=== PATIENT | male | born 1975 | race Caucasian/White ===

== ENCOUNTER 2020-04-22 06:41 | Outpatient (REF) | payer BC, SELFPAY ==
[2020-04-22 11:18] LABS: MANUAL DIFF FLAG NO
[2020-04-22 11:26] LABS: Basophils Percent Auto 0.4 % (0-2); Eosinophils Absolute Auto 0.2 X10*3/uL (0.0-0.4); Eosinophils Percent Auto 2.5 % (0-4); Hematocrit 48.5 % (42-52); Imm Gran Abs Auto 0.02 X10*3/uL (0.00-0.03); Imm Gran Pct Auto 0.3 % (0.0-0.4); Lymphocytes Absolute Auto 2.3 X10*3/uL (1.2-4.9); Lymphocytes Percent Auto 32.8 % (20-40); Mean Corpuscular Hemoglobin 30.1 pg (27.0-33.0); Mean Corpuscular Volume 91.2 fL (80-98); Mean Platelet Volume 10.7 fL (9.4-12.4); Monocytes Absolute Auto 0.9 X10*3/uL (0.1-1.2); Monocytes Percent Auto 12.5 % (2-11); Neutrophils Absolute Auto 3.6 X10*3/uL (2.0-8.3); Neutrophils Percent Auto 51.5 % (45-73); Platelet Count 205 X10*3/uL (160-400); Red Blood Count 5.32 X10*6/uL (4.60-5.80); Red Cell Distribution Width 12.7 % (11.0-16.0); White Blood Count 6.9 X10*3/uL (4.8-10.8)
[2020-04-22 11:52] LABS: Alanine Aminotransferase 47 U/L (0-40); Albumin Level 4.4 g/dL (3.5-5.0); Alkaline Phosphatase 44 U/L (39-117); Anion Gap 13 (12-20); Aspartate Amino Transferase 30 U/L (5-37); Blood Urea Nitrogen 14 mg/dL (9-16); Calcium 9.3 mg/dL (8.4-10.2); Carbon Dioxide 28 mmol/L (22-29); Chloride 104 mmol/L (96-108); Cholesterol 239 mg/dL; Estimated Glomerular Filt Rate > 60; Glucose Fasting 91 mg/dL (60-99); HDL Cholesterol 51 mg/dL; LDL Cholesterol Calculated 166 mg/dl; Potassium 4.4 mmol/l (3.3-5.1); Sodium 141 mmol/L (135-145); Total Protein 7.1 g/dL (6.5-8.0); Triglycerides 113 mg/dL
[2020-04-22 12:14] LABS: Thyroid Stimulating Hormone 2.11 mIU/mL (0.32-4.0)
== END 2020-04-22 06:42 | disposition home or self-care (01) ==
LOC: HO.HMGCLDS 06:41
PROVIDERS: PCP Internal Medicine; Visit Provider Internal Medicine
DX: Z00.00 Encounter for general adult medical examination without abnormal findings (principal)
CPT/HCPCS: 36415; 80053; 80061; 84443; 85025

== ENCOUNTER 2020-10-08 06:42 | Outpatient (REF) | payer BC, SELFPAY ==
[2020-10-08 12:06] LABS: Alanine Aminotransferase 40 U/L (0-40); Albumin Level 4.2 g/dL (3.5-5.0); Alkaline Phosphatase 43 U/L (39-117); Anion Gap 10 (12-20); Aspartate Amino Transferase 23 U/L (5-37); Bilirubin Total 0.8 mg/dL (0.0-1.0); Blood Urea Nitrogen 20 mg/dL (9-16); Calcium 8.4 mg/dL (8.4-10.2); Carbon Dioxide 29 mmol/L (22-29); Chloride 107 mmol/L (96-108); Cholesterol 170 mg/dL; Estimated Glomerular Filt Rate > 60; Glucose Fasting 88 mg/dL (60-99); HDL Cholesterol 50 mg/dL; LDL Cholesterol Calculated 108 mg/dl; Potassium 4.1 mmol/L (3.3-5.1); Sodium 142 mmol/L (135-145); Total Protein 6.8 g/dL (6.5-8.0); Triglycerides 60 mg/dL
== END 2020-10-08 06:43 | disposition home or self-care (01) ==
LOC: HO.HMGCLDS 06:42
PROVIDERS: Visit Provider Internal Medicine
DX: E78.00 Pure hypercholesterolemia, unspecified (principal)
CPT/HCPCS: 36415; 80053; 80061

== ENCOUNTER → 2021-02-15 14:14 | Outpatient (BNVA) | payer BC, SELFPAY | PROVIDERS: PCP Internal Medicine; Visit Provider Surgery ==

== ENCOUNTER → 2021-02-25 10:08 | Outpatient (BNVA) | payer BC, SELFPAY | PROVIDERS: PCP Internal Medicine; Visit Provider Surgery ==

== ENCOUNTER 2022-12-19 06:19 | Outpatient (REF) | payer BC, SELFPAY ==
[2022-12-19 11:10] LABS: MANUAL DIFF FLAG NO
[2022-12-19 11:21] LABS: Basophils Percent Auto 0.4 % (0-2); Eosinophils Absolute Auto 0.2 X10*3/uL (0.0-0.4); Eosinophils Percent Auto 2.5 % (0-4); Hemoglobin 16.2 g/dl (14.0-18.0); Imm Gran Abs Auto 0.01 X10*3/uL (0.00-0.03); Imm Gran Pct Auto 0.1 % (0.0-0.4); Lymphocytes Absolute Auto 2.2 X10*3/uL (1.2-4.9); Lymphocytes Percent Auto 32.9 % (20-40); Mean Corpuscular HGB Conc 33.8 g/dl (31.0-36.0); Mean Corpuscular Hemoglobin 30.3 pg (27.0-33.0); Mean Corpuscular Volume 89.9 fL (80.0-98.0); Mean Platelet Volume 10.6 fL (9.4-12.4); Monocytes Absolute Auto 0.8 X10*3/uL (0.1-1.2); Monocytes Percent Auto 12.1 % (2-11); Neutrophils Absolute Auto 3.5 x10*3/uL (2.0-8.3); Platelet Count 185 X10*3/uL (160-400); Red Blood Count 5.34 X10*6/uL (4.60-5.80); Red Cell Distribution Width 12.6 % (11.0-16.0); White Blood Count 6.7 X10*3/uL (4.8-10.8)
[2022-12-19 11:54] LABS: Alanine Aminotransferase 40 U/L (0-40); Albumin Level 4.1 g/dL (3.5-5.0); Alkaline Phosphatase 47 U/L (39-117); Anion Gap 12 (12-20); Aspartate Amino Transferase 25 U/L (5-37); Bilirubin Total 0.5 mg/dL (0.0-1.0); Blood Urea Nitrogen 16 mg/dL (9-16); Calcium 9.1 mg/dL (8.4-10.2); Carbon Dioxide 24 mmol/L (22-29); Chloride 110 mmol/L (96-108); Cholesterol 214 mg/dL; Estimated Glomerular Filt Rate > 60; Glucose Fasting 101 mg/dL (60-99); HDL Cholesterol 46 mg/dL; LDL Cholesterol Calculated 141 mg/dl; Sodium 142 mmol/L (135-145); Triglycerides 138 mg/dL
[2022-12-19 12:09] LABS: PSA,Total (Free>4and<10) 0.21 ng/mL (0.00-4.00)
[2022-12-19 12:16] LABS: Thyroid Stimulating Hormone 3.21 uIU/mL (0.32-4.0); Vitamin D 25-OH Total 45.3 ng/mL (>30)
== END 2022-12-19 06:20 | disposition home or self-care (01) ==
LOC: HO.HMGCLDS 06:19
PROVIDERS: PCP Internal Medicine; Visit Provider Internal Medicine
DX: Z00.00 Encounter for general adult medical examination without abnormal findings (principal); Z12.5 Encounter for screening for malignant neoplasm of prostate; E78.00 Pure hypercholesterolemia, unspecified; E66.3 Overweight
CPT/HCPCS: 36415; 80053; 80061; 82306; 84153; 84443; 85025

== ENCOUNTER 2023-12-27 14:48 | Outpatient (AMB) | payer BC, SELFPAY ==
--- NOTE | 2023-12-27 15:01 | A.OFFPC_ITS ---
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 FHx: Mom: DM, Skin CA. Liver failure. Dad: Crohns. GM: DM. Nephew: DM. 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 REP (central serous retinopathy) Surgical History History of hand surgery Family History (Updated 12/27/23 @ 15:19 by Jacqueline Carvajal CMA) Mother Skin cancer Liver failure Type 2 diabetes mellitus Father Colitis Acute Crohn's disease Social History (Updated 12/27/23 @ 15:23 by Jacqueline Carvajal CMA) Household Members: Family Both parents involved: No Caregiver staying overnight: No Housing: House Are you a primary child care education coordinator to a significant other at home: No Do you presently have visiting nurse or other home services: No 75 years or older and lives alone: No Alcohol intake: never Patient Tobacco Use Status: Never used Tobacco e-Cigarette/Vaping Use: Never Used Use of substances other than those prescribed or required for medical reasons: No Have you been hit, kicked, punched, or otherwise hurt by someone within the past year? 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 1. Little interest or pleasure in doing things: not at all 2. Feeling down, depressed, or hopeless: not at all 3. Trouble falling or staying asleep, or sleeping too much: not at all 4. Feeling tired or having little energy: not at all 5. Poor appetite or overeating: not at all 6. Feeling bad about yourself - or that you are a failure or have let yourself or your family down: not at all 7. Trouble concentrating on things, such as reading the newspaper or watching television: not at all 8. Moving or speaking so slowly that other people could have noticed. Or the opposite - being so fidgety or restless that you have been moving around a lot more than usual: not at all 9. Thoughts that you would be better off or of hurting yourself in some way: not at all Total score: 0 Depression Screening Interpretation: Negative Depression Screening Done: Yes 81346 - PHQ-9 Billing: Yes Source: Developed by Drs. Bahman Gómez, Zonia Ramirez, Emerson Cabral and colleagues, with an educational jossue from [employer]. AUDIT C Alcohol Use Questionnaire (AUDIT-C) 1. How often do you have a drink containing alcohol?: Monthly or less 2. How many drinks containing alcohol do you have on a typical day when you are drinking?: 3 or 4 3. How often do you have six or more drinks on one occasion?: Never Total Score: 2 MING-7 AMB Questionnaire MING-7 Date MING - 7 assessed: 12/27/23 Feeling nervous, anxious, or on edge: 0 = Not at all Not being able to stop or control worryin = Not at all Worrying too much about different things: 0 = Not at all Trouble relaxin = Not at all Being so restless that it is hard to sit still: 0 = Not at all Becoming easily annoyed or irritable: 0 = Not at all Feeling afraid as if something awful might happen: 0 = Not at all Total MING-7 score (0-4 normal; 5-9 mild; 10-14 moderate; 15-21 severe): 0 Source: Developed by Drs. Bahman Gómez, Zonia Ramirez, Emerson Cabral and colleagues, with an educational jossue from [employer]. MING-7 Assessment Billing MING-7 Assessment Tool: MING-7 Assessment 46941 Review of Systems Const Denies chills, Denies fatigue, Denies fever(s), Denies headache(s) and Denies weakness ENT Denies dizziness and Denies headache(s) Card Denies chest pain, Denies lightheadedness, Denies dyspnea and Denies other (Palpitations) Resp Denies cough, Denies dyspnea, Denies wheezing and Denies other ( shortness of breath) Musc Denies numbness and Denies tingling Neuro Denies dizziness, Denies headache(s), Denies numbness, Denies tingling, Denies paresthesias and Denies weakness Psych Denies anxiety and Denies depression Endo Denies fatigue Aller/Immun Denies wheezing Physical exam (Primary Care) Vital Signs: Last Vital Signs Pulse 62 12/27/23 15:03 BP 128/74 12/27/23 15:03 Pulse Ox 98 12/27/23 15:03 Oxygen Delivery Method Room Air 12/27/23 15:03 BMI result Body Mass Index 31.7 Tobacco/Smoking Status: Tobacco use Status Tobacco use date assessed 12/27/23 12/27/23 15:26 Patient Tobacco Use Status Never used Tobacco 12/27/23 15:23 e-Cigarette/Vaping Use Never Used 12/27/23 15:26 PHQ-9: PHQ-9 Score PHQ-9: Total score 0 12/27/23 15:28 Depression Screening Interpretation: Negative Const General: no acute distress and well developed Nutritional Appearance: well nourished Orientation/consciousness: patient oriented x3 HENMT Head: Yes normocephalic and Yes atraumatic Eyes General: appearance normal, both eyes and all related structures Pupils: Equal, round and reactive pupils present EOM: EOMs intact bilaterally Resp Effort & Inspection: normal respiratory effort Auscultation: clear to auscultation bilaterally Cardio Rate: regular rate Rhythm: regular rhythm Heart sounds: S1 normal heart sound present, S2 normal heart sound present, no gallops, no murmurs and no rubs Neuro General: patient oriented x3 and gait normal Cranial nerves: Yes Equal, round and reactive pupils present Psych Affect: normal affect Assessment and Plan Assessment & Plan (1) Sleep apnea: Code(s): G47.30 - Sleep apnea, unspecified Plan: Patient's??has?witnessed?apneic?events?and?snoring Referred?to?Sleep?Medicine (2) Neoplasm of uncertain behavior of skin: Code(s): D48.5 - Neoplasm of uncertain behavior of skin Plan: Neoplasm?at?left?posterior?forearm?with?intermittent?pain Referred?to?dermatology (3) Hyperlipidemia: Code(s): E78.5 - Hyperlipidemia, unspecified Plan: History?of?hyperlipidemia?and?had?been?on?rosuvastatin Has?been?unable?to?get?a?refill?from?his?prior?PCP Will?refill?but?I?have?asked?him?to?get?his?labs?drawn?prior?to?starting?this?ag ain We?can?follow-up?on?his?lipids?and?make?adjustments?if?necessary Baseline?EKG?today?shows: ?Normal?sinus?rhythm,?normal?axis,?normal?intervals,?no?hypertrophy,?no?ST-T-wav e?changes;?normal?EKG (4) Family history of diabetes mellitus (DM): Code(s): Z83.3 - Family history of diabetes mellitus Plan: Checking?labs?including?fasting?blood?sugar (5) Laboratory exam ordered as part of routine general medical examination: Code(s): Z00.00 - Encounter for general adult medical examination without abnormal findings Plan: Check?labs Orders: Orders Lipid Panel Today Z00.00 - Encounter for general adult medical examination without abnormal findings Prostate Specific Antigen Scr Today Z12.5 - Encounter for screening for malignant neoplasm of prostate AMB EKG-In Office Today E78.5 - Hyperlipidemia, unspecified, Z00.00 - Encounter for general adult medical examination without abnormal findings Comprehensive [place]. Panel Fast Today Z00.00 - Encounter for general adult medical examination without abnormal findings Microalbumin, Random (w Creat) Today I10 - Essential (primary) hypertension TSH reflex Free T4 Today Z00.00 - Encounter for general adult medical examination without abnormal findings UA and rflx microscopic Today Z00.00 - Encounter for general adult medical examination without abnormal findings Referrals Sleep Medicine Referral G47.30 - Sleep apnea, unspecified Dermatology Referral D48.5 - Neoplasm of uncertain behavior of skin Medications: Changed From rosuvastatin 5 mg PO DAILY To rosuvastatin 5 mg PO DAILY 90 days 90 tabs 2RF Coding Level of Care Code New Pt Level 3 (95561) Diagnoses Sleep apnea G47.30 Neoplasm of uncertain behavior of skin D48.5 Hyperlipidemia E78.5 Family history of diabetes mellitus (DM) Z83.3 Laboratory exam ordered as part of routine general medical examination Z00.00 Additional Codes MING-7 Assessment Billing - MING-7 Assessment Tool: MING-7 Assessment 35988 ([id number])
[2023-12-27 15:03] VITALS: BP 128/74; PULSE 62; O2SAT 98; BMI 31.7
== END 2023-12-27 15:57 | disposition home or self-care (01) ==
PROVIDERS: PCP Family Medicine; Visit Provider Family Medicine
DX: G47.30 Sleep apnea, unspecified (principal); D48.5 Neoplasm of uncertain behavior of skin; E78.5 Hyperlipidemia, unspecified; Z83.3 Family history of diabetes mellitus; Z00.00 Encounter for general adult medical examination without abnormal findings
CPT/HCPCS: 93000; 99203

== ENCOUNTER 2024-01-11 06:35 | Outpatient (REF) | payer BC, SELFPAY ==
[2024-01-11 10:27] LABS: Appearance Urine Clear; Color Urine Yellow; Glucose Urine UA Negative (Negative); Leukocyte Esterase Urine Negative (Negative); Nitrite Urine Negative (Negative); Urine Blood Negative (Negative); Urine Ketones Negative (Negative); Urine Protein Negative (Neg-Trace)
[2024-01-11 11:04] LABS: Creatinine Urine 168.52 mg/dL; Microalbumin Urine < 5.0 mg/L
[2024-01-11 11:20] LABS: Alanine Aminotransferase 61 U/L (0-40); Albumin Level 4.3 g/dL (3.5-5.0); Alkaline Phosphatase 46 U/L (39-117); Anion Gap 10 (12-20); Aspartate Amino Transferase 34 U/L (5-37); Bilirubin Total 0.8 mg/dL (0.0-1.0); Blood Urea Nitrogen 16 mg/dL (9-16); Calcium 9.8 mg/dL (8.4-10.2); Carbon Dioxide 25 mmol/L (22-29); Chloride 108 mmol/L (96-108); Cholesterol 221 mg/dL (<200); Estimated Glomerular Filt Rate > 60; Glucose Fasting 98 mg/dL (60-99); HDL Cholesterol 47 mg/dL (>40); LDL Cholesterol Calculated 155 mg/dL (<100); Sodium 139 mmol/L (135-145); Total Protein 7.2 g/dL (6.5-8.0); Triglycerides 99 mg/dL (<150)
[2024-01-11 11:35] LABS: TSH reflex Free T4 2.76 uIU/mL (0.32-4.0)
[2024-01-11 11:36] LABS: Prostate Specific Antigen Scr 0.21 ng/mL (<0.05-4.0)
== END 2024-01-11 06:36 | disposition home or self-care (01) ==
LOC: HO.HMGCLDS 06:35
PROVIDERS: PCP Family Medicine; Visit Provider Family Medicine
DX: Z00.00 Encounter for general adult medical examination without abnormal findings (principal); I10 Essential (primary) hypertension; Z12.5 Encounter for screening for malignant neoplasm of prostate
CPT/HCPCS: 36415; 80053; 80061; 81003; 82043; 82570; 84153; 84443

== ENCOUNTER 2024-03-19 15:54 | Outpatient (AMB) | payer BC, SELFPAY ==
--- NOTE | 2024-03-19 16:03 | A.OFFPC_ITS ---
Vital Signs 03/19/24 16:05 Height 5 ft 7 in Weight 201 lb 6 oz BMI 31.5 BP 100/70 Blood Pressure Location Lt brachial Position Sitting Respiration 16 Pulse 68 Pulse Source Pulse Oximeter Temp 98.3 F Temp Source Tympanic Pulse Oximetry (%) 94 Oxygen Delivery Method Room Air Intake Visit Reasons: CPE w/ f/u labs & health maint 30 mins-see comment Intake Note: CPE Allergies No Known Allergies Allergy (Verified 03/19/24 16:03) Tobacco use date assessed: 03/19/24 Dental Screening Dental Screen Date: 03/19/24 Did you have a dental visit in the last 12 months?: Yes Did you have a dental problem in the last 6 months where you did not have access to dental care?: No Was dental information given to patient?: Patient has dentist HPI CPE w/ f/u labs & health maint 30 mins-see comment HPI Details 48 y/o male presents for a CPE with f/u labs and health maintenance. Labs drawn 01/11/24. Reviewed labs with pt. Triglycerides 99. TC 221. LDL 155. HDL 47. He is on rosuvastatin 5mg daily. PSA 0.21. Elevated ALT of 61. Denies much EtOH use. Denies excessive tylenol use. Has complaints of some GERD. Notes he has never had a colonoscopy. HPI Comments History of Present Illness Details Documentation assistance for Jose David Campa MD, was provided by Bean Gagnon, Homeowner Association Manager on 03/19/2024 at 4:37 PM EST. I, Dr. Campa, have read, observed, and verified documentation. 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) Surgical History History of hand surgery Family History (Updated 12/27/23 @ 15:19 by Jacuqeline Carvajal CMA) Mother Skin cancer Liver failure Type 2 diabetes mellitus Father Colitis Acute Crohn's disease Social History (Updated 12/27/23 @ 15:23 by Jacqueline Carvajal CMA) Household Members: Family Both parents involved: No Caregiver staying overnight: No Housing: House Are you a primary life care planner to a significant other at home: No Do you presently have visiting nurse or other home services: No 75 years or older and lives alone: No Alcohol intake: never Patient Tobacco Use Status: Never used Tobacco e-Cigarette/Vaping Use: Never Used Agree to transfusion: Yes service: No 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 1. Little interest or pleasure in doing things: not at all 2. Feeling down, depressed, or hopeless: not at all 3. Trouble falling or staying asleep, or sleeping too much: not at all 4. Feeling tired or having little energy: not at all 5. Poor appetite or overeating: not at all 6. Feeling bad about yourself - or that you are a failure or have let yourself or your family down: not at all 7. Trouble concentrating on things, such as reading the newspaper or watching television: not at all 8. Moving or speaking so slowly that other people could have noticed. Or the opposite - being so fidgety or restless that you have been moving around a lot more than usual: not at all 9. Thoughts that you would be better off or of hurting yourself in some way: not at all Total score: 0 Depression Screening Interpretation: Negative Depression Screening Done: Yes 52371 - PHQ-9 Billing: Yes Source: Developed by Drs. Bahman Gómez, Zonia Ramirez, Emerson Cabral and colleagues, with an educational jossue from [employer]. Thrive Questionnaire Date Thrive assessed: 03/19/24 I am a: Patient What is your living situation today?: I have a steady place to live Within the past 12 months, did the food you bought not last and you didn't have the money to get more?: Never true Within the past 12 months, did you worry whether your food would run out before you got money to buy more?: Never true Do you have trouble paying for medicines?: No Do you have trouble getting transportation to medical appointments?: No Do you have trouble paying your heating and electricity bill?: No Do you have trouble taking care of your child, family member or friend?: No Do you have trouble with day-to-day activities such as bathing, preparing meals, shopping, managing finances, etc.?: No Are you currently unemployed and looking for a job?: No Are you interested in more education?: No Currently or been in a relationship where the following occur: No concerns reported THRIVE Score: 0 AUDIT C Alcohol Use Questionnaire (AUDIT-C) 1. How often do you have a drink containing alcohol?: Monthly or less 2. How many drinks containing alcohol do you have on a typical day when you are drinking?: 1 or 2 3. How often do you have six or more drinks on one occasion?: Never Total Score: 1 MING-7 AMB Questionnaire MING-7 Date MING - 7 assessed: 12/27/23 Feeling nervous, anxious, or on edge: 0 = Not at all Not being able to stop or control worryin = Not at all Worrying too much about different things: 0 = Not at all Trouble relaxin = Not at all Being so restless that it is hard to sit still: 0 = Not at all Becoming easily annoyed or irritable: 0 = Not at all Feeling afraid as if something awful might happen: 0 = Not at all Total MING-7 score (0-4 normal; 5-9 mild; 10-14 moderate; 15-21 severe): 0 Source: Developed by Drs. Bahman Gómez, Zonia Ramirez, Emerson Cabral and colleagues, with an educational jossue from [employer]. MING-7 Assessment Billing MING-7 Assessment Tool: MING-7 Assessment 28655 Review of Systems Const Denies chills, Denies fatigue, Denies fever(s), Denies headache(s) and Denies weakness Eyes Denies change in vision ENT Denies dizziness, Denies headache(s), Denies hearing loss, Denies nasal congestion, Denies sinus pain, Denies sinus pressure and Denies sore throat Card Denies chest pain, Denies lightheadedness, Denies dyspnea and Denies other (palpitations) Resp Denies cough, Denies dyspnea and Denies wheezing GI Denies abdominal pain, Denies melena, Denies hematochezia, Denies change in bowel habits, Denies dyspepsia and Denies nausea Denies hematuria and Denies dysuria Musc Denies abnormal gait, Denies myalgias, Denies arthralgias, Denies numbness and Denies tingling Skin/Breast Denies rash, Denies unusual bruising and Denies wounds Neuro Denies abnormal gait, Denies dizziness, Denies headache(s), Denies memory loss, Denies numbness, Denies Sensory deficit (Neuro), Denies tingling and Denies weakness Psych Denies anxiety, Denies depression and Denies memory loss Endo Denies cold intolerance, Denies fatigue, Denies heat intolerance, Denies polydipsia and Denies polyuria [place]/Lymph Denies easy bleeding and Denies easy bruising Aller/Immun Denies wheezing Physical exam (Primary Care) Vital Signs: Last Vital Signs Temp 98.3 F 03/19/24 16:05 Pulse 68 03/19/24 16:05 Resp 16 03/19/24 16:05 BP 100/70 03/19/24 16:05 Pulse Ox 94 03/19/24 16:05 Oxygen Delivery Method Room Air 03/19/24 16:05 BMI result Body Mass Index 31.5 Tobacco/Smoking Status: Tobacco use Status Tobacco use date assessed 03/19/24 03/19/24 16:08 Patient Tobacco Use Status Never used Tobacco 03/19/24 16:08 e-Cigarette/Vaping Use Never Used 03/19/24 16:08 PHQ-9: PHQ-9 Score PHQ-9: Total score 0 03/19/24 16:12 Depression Screening Interpretation: Negative Thrive Assessment: Date of Thrive Assessment Date Thrive assessed 03/19/24 03/19/24 16:08 Currently or been in a relationship where the following occur: No concerns reported Const General: no acute distress, well developed, alert and awake Nutritional Appearance: well nourished Orientation/consciousness: patient oriented x3 HENMT Head: Yes normocephalic and Yes atraumatic Ears: hearing grossly normal bilaterally and TM's normal bilaterally General nose exam: Normal external nose present and Normal nares present Mouth: Normal oral and palatal mucosa present and moist mucous membranes Teeth and gingiva: dentition normal Throat: Yes posterior oropharynx normal Eyes General: appearance normal, both eyes and all related structures Pupils: Equal, round and reactive pupils present and Pupil accommodation reflex normal EOM: EOMs intact bilaterally Neck Neck: Yes normal visual inspection, Yes no lymphadenopathy and Yes trachea midline Thyroid: Thyroid normal Carotids: no bruits Lymphatic: no lymphadenopathy noted Chest Chest palpation & inspection: normal inspection of the chest Resp Effort & Inspection: normal respiratory effort Auscultation: clear to auscultation bilaterally Cardio Rate: regular rate Rhythm: regular rhythm Heart sounds: S1 normal heart sound present, S2 normal heart sound present, no gallops, no murmurs and no rubs Bruits: no abdominal aortic bruits and no carotid bruits GI Palpation (GI): No Abdominal aortic bruit present, Soft to palpation, nontender, No hepatosplenomegaly present and No Rebound tenderness present Auscultation: normal bowel sounds General: Yes no CVA tenderness Back/Spine/Pelvis Back: no CVA tenderness Cervical Spine: cervical ROM normal and No Cervical spine tenderness Thoracic/Lumbar Spine: thoraco-lumbar ROM normal, No pain with thoraco-lumbar ROM, No thoracic spinal tenderness and No lumbar spinal tenderness Skin Lesions: no lesions Rashes: no rashes Trauma: no lacerations or abrasions Wounds: no wounds Nails: normal Neuro General: patient oriented x3 Cranial nerves: Yes Equal, round and reactive pupils present Cognition (Neuro): normal cognition Gait exam (Neuro): Normal gait present Motor exam (neuro): 5/5 motor strength present throughout Sensory Exam: No Sensory deficit (Neuro) Deep tendon reflexes (DTR's): Right patellar reflex intensity grade: 2+ and Left patellar reflex intensity grade: 2+ Extrem General: Yes normal to inspection and No edema Psych Appearance: grossly normal Affect: normal affect Attitude: cooperative Thought process: Normal thought process present Assessment and Plan Assessment & Plan (1) Adult general medical exam: Code(s): Z00.00 - Encounter for general adult medical examination without abnormal findings Plan: 48-year-old?male?presents?for?complete?physical?exam Encouraged?healthy?diet?with?active?lifestyle?and?plenty?of?exercise (2) Hyperlipidemia: Code(s): E78.5 - Hyperlipidemia, unspecified Plan: LDL?cholesterol?is?too?high.??Patient?had?been?off?of?his?rosuvastatin?and?has?s tarted?it?since?getting?his?blood?drawn. Will?recheck?cholesterol?levels?in?a?couple?of?months?and?follow-up?together (3) GERD (gastroesophageal reflux disease): Code(s): K21.9 - Gastro-esophageal reflux disease without esophagitis Plan: GERD?symptoms?about?once?a?month Recommended?avoiding?trigger?foods,?not?over?fee ling?and?not?eating?too?close?to?bedtime Can?treat?intermittently?with?antacids?or?famotidine He?will?let?me?know?if?symptoms?are?worsen (4) Elevated ALT measurement: Code(s): R74.01 - Elevation of levels of liver transaminase levels Plan: Elevated?ALT Advised?patient?Work?at?some?weight?l oss,?good?hydration,?avoid?alcohol?and?Tylenol Will?recheck?liver?enzymes?with?next?blood?draw.??If?liver?enzymes?are?the?same? or?higher,?will?check?an?ultrasound (5) Screening for colon cancer: Code(s): Z12.11 - Encounter for screening for malignant neoplasm of colon Plan: Patient?has?never?had?a?colonoscopy Referred?to?Gastroenterology?for?1st?screening?colonoscopy (6) Screening for prostate cancer: Code(s): Z12.5 - Encounter for screening for malignant neoplasm of prostate Plan: PSA?is?within?normal?range Continue?annual?screen Orders: Referrals Gastroenterology Referral Z12.11 - Encounter for screening for malignant neoplasm of colon Coding Level of Care Code Est Pt Level 3 (86869) Est Pt Prev Care 40-64y(04616) Diagnoses Adult general medical exam Z00.00 Hyperlipidemia E78.5 GERD (gastroesophageal reflux disease) K21.9 Elevated ALT measurement R74.01 Screening for colon cancer Z12.11 Screening for prostate cancer Z12.5 Additional Codes MING-7 Assessment Billing - MING-7 Assessment Tool: MING-7 Assessment 66016 ([id number])
[2024-03-19 16:05] VITALS: BP 100/70; PULSE 68; RESP 16; TEMP 36.8; O2SAT 94; BMI 31.5
== END 2024-03-19 16:35 | disposition home or self-care (01) ==
PROVIDERS: PCP Family Medicine; Visit Provider Family Medicine
DX: Z00.00 Encounter for general adult medical examination without abnormal findings (principal); E78.5 Hyperlipidemia, unspecified; K21.9 Gastro-esophageal reflux disease without esophagitis; R74.01 Elevation of levels of liver transaminase levels; Z12.11 Encounter for screening for malignant neoplasm of colon; Z12.5 Encounter for screening for malignant neoplasm of prostate

== ENCOUNTER → 2024-03-19 15:54 | Outpatient (BNVA) | payer BC, SELFPAY | PROVIDERS: PCP Family Medicine; Visit Provider Family Medicine | DX: Z00.00 Encounter for general adult medical examination without abnormal findings (principal); E78.5 Hyperlipidemia, unspecified; K21.9 Gastro-esophageal reflux disease without esophagitis; R74.01 Elevation of levels of liver transaminase levels | CPT/HCPCS: 96127 ==

== ENCOUNTER 2024-05-22 06:07 | Outpatient (REF) | payer BC, SELFPAY ==
[2024-05-22 10:35] LABS: Alanine Aminotransferase 60 U/L (0-40); Albumin Level 4.2 g/dL (3.5-5.0); Alkaline Phosphatase 46 U/L (39-117); Anion Gap 11 (12-20); Aspartate Amino Transferase 38 U/L (5-37); Bilirubin Total 0.7 mg/dL (0.0-1.0); Blood Urea Nitrogen 13 mg/dL (9-16); Calcium 9.2 mg/dL (8.4-10.2); Carbon Dioxide 28 mmol/L (22-29); Chloride 106 mmol/L (96-108); Cholesterol 182 mg/dL (<200); Estimated Glomerular Filt Rate > 60; Glucose Fasting 98 mg/dL (60-99); HDL Cholesterol 50 mg/dL (>40); LDL Cholesterol Calculated 104 mg/dL (<100); Sodium 141 mmol/L (135-145); Total Protein 7.1 g/dL (6.5-8.0); Triglycerides 141 mg/dL (<150)
== END 2024-05-22 06:08 | disposition home or self-care (01) ==
LOC: HO.HMGCLDS 06:07
PROVIDERS: PCP Family Medicine; Visit Provider Family Medicine
DX: Z00.00 Encounter for general adult medical examination without abnormal findings (principal)
CPT/HCPCS: 36415; 80053; 80061

== ENCOUNTER 2024-05-22 16:22 | Outpatient (AMB) | payer BC, SELFPAY ==
--- NOTE | 2024-05-22 16:41 | A.OFFPC_ITS ---
Vital Signs 05/22/24 16:42 Height 5 ft 7 in Weight 203 lb 6 oz BMI 31.8 BP 113/64 Blood Pressure Location Rt brachial Position Sitting Respiration 16 Pulse 76 Pulse Source Pulse Oximeter Temp 97.9 F Temp Source Temporal Artery Scan Pulse Oximetry (%) 97 Oxygen Delivery Method Room Air Intake Visit Reasons: f/u elevated liver enzymes Intake Note: lab review Allergies No Known Allergies Allergy (Verified 05/22/24 16:41) Medication List - Last Reconciled 05/22/24 by Jose David Campa MD rosuvastatin 5 mg PO DAILY 90 days Tobacco use date assessed: 03/19/24 Dental Screening Dental Screen Date: 03/19/24 HPI f/u elevated liver enzymes HPI Details 48 y/o male presents to f/u HLD, liver e jie. He had been off his rosuvastatin when his cholesterol levels were checked and subsequently resumed this. Had advised pt to make lifestyle changes for liver enzymes. Labs drawn 05/22/24. Reviewed labs with pt. Elevated liver enzymes - AST 38, ALT 60. Triglycerides 141. TC 182. LDL improved from 155 to 104. He is on rosuvastatin 5mg daily. HDL 50. HPI Comments History of Present Illness Details Documentation assistance for Jose David Campa MD, was provided by Bean Gagnon, [employer] French Teacher on 05/22/2024 at 5:12 PM EST. I, Dr. Campa, have read, observed, and verified documentation. 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 (central serous retinopathy) Surgical History History of hand surgery Family History (Updated 12/27/23 @ 15:19 by Jacqueline Carvajal CMA) Mother Skin cancer Liver failure Type 2 diabetes mellitus Father Colitis Acute Crohn's disease Social History (Updated 12/27/23 @ 15:23 by Jacqueline Carvajal CMA) Household Members: Family Both parents involved: No Caregiver staying overnight: No Housing: House Are you a primary resident care manager rn to a significant other at home: No Do you presently have visiting nurse or other home services: No 75 years or older and lives alone: No Alcohol intake: never Patient Tobacco Use Status: Never used Tobacco e-Cigarette/Vaping Use: Never Used Agree to transfusion: Yes service: No 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 1. Little interest or pleasure in doing things: not at all 2. Feeling down, depressed, or hopeless: not at all 3. Trouble falling or staying asleep, or sleeping too much: not at all 4. Feeling tired or having little energy: not at all 5. Poor appetite or overeating: not at all 6. Feeling bad about yourself - or that you are a failure or have let yourself or your family down: not at all 7. Trouble concentrating on things, such as reading the newspaper or watching television: not at all 8. Moving or speaking so slowly that other people could have noticed. Or the opposite - being so fidgety or restless that you have been moving around a lot more than usual: not at all 9. Thoughts that you would be better off or of hurting yourself in some way: not at all Total score: 0 Source: Developed by Drs. Bahman Gómez, Zonia Ramirez, Emerson Cabral and colleagues, with an educational jossue from [employer]. Thrive Questionnaire Date Thrive assessed: 03/19/24 I am a: Patient What is your living situation today?: I have a steady place to live Within the past 12 months, did the food you bought not last and you didn't have the money to get more?: Never true Within the past 12 months, did you worry whether your food would run out before you got money to buy more?: Never true Do you have trouble paying for medicines?: No Do you have trouble getting transportation to medical appointments?: No Do you have trouble paying your heating and electricity bill?: No Do you have trouble taking care of your child, family member or friend?: No Do you have trouble with day-to-day activities such as bathing, preparing meals, shopping, managing finances, etc.?: No Are you currently unemployed and looking for a job?: No Are you interested in more education?: No Please select the resources that you would like help with: None Currently or been in a relationship where the following occur: No concerns reported THRIVE Score: 0 AUDIT C Alcohol Use Questionnaire (AUDIT-C) 1. How often do you have a drink containing alcohol?: 4 or more times a week 2. How many drinks containing alcohol do you have on a typical day when you are drinking?: 3 or 4 3. How often do you have six or more drinks on one occasion?: Less than monthly Total Score: 6 MING-7 AMB Questionnaire MING-7 Date MING - 7 assessed: 12/27/23 Feeling nervous, anxious, or on edge: 0 = Not at all Not being able to stop or control worryin = Not at all Worrying too much about different things: 0 = Not at all Trouble relaxin = Not at all Being so restless that it is hard to sit still: 0 = Not at all Becoming easily annoyed or irritable: 0 = Not at all Feeling afraid as if something awful might happen: 0 = Not at all Total MING-7 score (0-4 normal; 5-9 mild; 10-14 moderate; 15-21 severe): 0 Source: Developed by Drs. Bahman Gómez, Zonia Ramirez, Emerson Cabral and colleagues, with an educational jossue from [employer]. Review of Systems Const Denies chills, Denies fatigue, Denies fever(s), Denies headache(s) and Denies weakness ENT Denies dizziness and Denies headache(s) Card Denies dyspnea Resp Denies cough, Denies dyspnea, Denies wheezing and Denies other (shortness of breath) Musc Denies numbness and Denies tingling Neuro Denies dizziness, Denies headache(s), Denies numbness, Denies tingling and Denies weakness Psych Denies anxiety and Denies depression Endo Denies fatigue Aller/Immun Denies wheezing Physical exam (Primary Care) Vital Signs: Last Vital Signs Temp 97.9 F 05/22/24 16:42 Pulse 76 05/22/24 16:42 Resp 16 05/22/24 16:42 BP 113/64 05/22/24 16:42 Pulse Ox 97 05/22/24 16:42 Oxygen Delivery Method Room Air 05/22/24 16:42 BMI result Body Mass Index 31.8 Tobacco/Smoking Status: Tobacco use Status Tobacco use date assessed 03/19/24 05/22/24 16:44 Patient Tobacco Use Status Never used Tobacco 05/22/24 16:44 e-Cigarette/Vaping Use Never Used 05/22/24 16:44 PHQ-9: PHQ-9 Score PHQ-9: Total score 0 05/22/24 17:00 Thrive Assessment: Date of Thrive Assessment Date Thrive assessed 03/19/24 05/22/24 16:44 Currently or been in a relationship where the following occur: No concerns reported Const General: well developed; No acute distress Nutritional Appearance: well nourished Orientation/consciousness: patient oriented x3 HENMT Head: Yes normocephalic and Yes atraumatic Eyes General: appearance normal, both eyes and all related structures Pupils: Equal, round and reactive pupils present EOM: EOMs intact bilaterally Resp Effort & Inspection: normal respiratory effort Auscultation: clear to auscultation bilaterally Cardio Rate: regular rate Rhythm: regular rhythm Heart sounds: S1 normal heart sound present, S2 normal heart sound present, no gallops, no murmurs and no rubs Neuro General: patient oriented x3 and gait normal Cranial nerves: Yes Equal, round and reactive pupils present Psych Affect: normal affect Coding Level of Care Code Est Pt Level 3 (17628) Diagnoses Elevated liver enzymes R74.8 Hyperlipidemia E78.5 Assessment & Plan Assessment & Plan (1) Elevated liver enzymes: Code(s): R74.8 - Abnormal levels of other serum enzymes Category: Medical Plan: Mild?but?persistent?elevated?liver?enzymes. Will?check?an?ultrasound Recommended?avoiding?Tylenol,?hydrating?well?and?avoiding?or?moderating?alcoholi c?beverages Recommended?weight?loss We?can?follow-up?by?telemedicine?to?review?results?of?ultrasound (2) Hyperlipidemia: Code(s): E78.5 - Hyperlipidemia, unspecified Category: Medical Plan: LDL?cholesterol?much?improved?back?on?rosuvastatin?5?mg?daily.??Still ?slightly?above?goal?of?less?than?100 No?change?to?rosuvastatin?but?advised?diet?and?weight?loss We?can?follow-up?on?this?a?subsequent?visit Orders: Orders US abdomen botello w elastography Today R74.8 - Abnormal levels of other serum enzymes
[2024-05-22 16:42] VITALS: BP 113/64; PULSE 76; RESP 16; TEMP 36.6; O2SAT 97; BMI 31.8
== END 2024-05-22 17:13 | disposition home or self-care (01) ==
PROVIDERS: PCP Family Medicine; Visit Provider Family Medicine
DX: R74.8 Abnormal levels of other serum enzymes (principal); E78.5 Hyperlipidemia, unspecified

== ENCOUNTER 2024-06-13 07:40 | Outpatient (REF) | payer BC, SELFPAY | END 2024-06-13 07:41 | disposition home or self-care (01) | LOC: HO.US 07:40 | PROVIDERS: PCP Family Medicine; Visit Provider Family Medicine | DX: R74.8 Abnormal levels of other serum enzymes (principal) | CPT/HCPCS: 76705; 76981 ==

== ENCOUNTER → 2024-06-13 07:41 | Outpatient (BNV) | payer BC, SELFPAY | PROVIDERS: PCP Family Medicine; Visit Provider Radiology Diagnostic Radiology | DX: R74.8 Abnormal levels of other serum enzymes (principal) | CPT/HCPCS: 76705 ==

== ENCOUNTER 2024-07-23 07:56 | Outpatient (AMB) | payer BC, SELFPAY ==
[2024-07-23 08:05] VITALS: BP 120/72; PULSE 70; O2SAT 94; BMI 32.5
--- NOTE | 2024-07-23 08:05 | A.OFFVIS_ITS ---
Vital Signs 07/23/24 08:05 Height 5 ft 7 in Weight 207 lb 4 oz BMI 32.5 BP 120/72 Blood Pressure Location Lt brachial Position Sitting Pulse 70 Pulse Source Pulse Oximeter Pulse Oximetry (%) 94 Oxygen Delivery Method Room Air Intake Visit Reasons: INP: Sleep Apnea Allergies No Known Allergies Allergy (Verified 07/23/24 08:08) HPI Comments Details: 48-yr-old male presents for new in-person patient visit for sleep consultation. Patient reports his is concerned that he may have sleep apnea, as he has snoring and gashing. Sleep history questionnaire: Have you ever been diagnosed with a sleep disorder? no Have you ever had a sleep study in the past? no Have you ever been treated for a sleep disorder? no Do you take medications/supplements for a sleep disorder? once every other week, may take a melatonin if feels he has not slept well. Current sleep symptom questionnaire: Pt reports rarely difficulty maintaining sleep, unrefreshing sleep, some daytime sleepiness, easily falls asleep when inactive. Pt reports snoring, nocturnal gasping,apneas, witnessed apneas. Pt denies nocturnal dry mouth. Pt reports bruxism and uses a mouth guard. Pt reports mild headaches upon awakening- about 3 x's per week. Denies headache associated with photo/phonophobia or nausea. Pt reports GERD Pt reports he wake up once a night maybe 3 nights a week, and easily falls back asleep Pt reports occasional nocturnal leg cramps, restless leg symptoms of discomfort in his feet when sitting and watching TV but not in bed- shifting his feet helps. Pt reports ruminating thoughts. Pt endorses family h/o similar sleep s/s- cousins have sleep apnea, his father can fall asleep anywhere , his mother does not sleep a lot. 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 Works day shift- 7am-3pm. Usual bedtime is at 10pm Usual time to fall asleep- shortly after 10pm Usual wake-up time 5am Usual out of bed time is at 5am Naps: Takes unintentional unscheduled naps Sleep environment: comfortable, cool, - does not have curtains in room d/t [place] area. Electronic use in bedroom: some TV but easily falls asleep Exercise: None- other than work Caffeine or other stimulants: 1 cups of 20oz coffee per day in am- rarely a second cup. 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 (central serous retinopathy) Surgical History History of hand surgery Family History Mother Skin cancer Liver failure Type 2 diabetes mellitus Father Colitis Acute Crohn's disease Social History Household Members: Family Both parents involved: No Caregiver staying overnight: No Housing: House Are you a primary urgent care physician assistant to a significant other at home: No Do you presently have visiting nurse or other home services: No 75 years or older and lives alone: No Alcohol intake: never Patient Tobacco Use Status: Never used Tobacco e-Cigarette/Vaping Use: Never Used Agree to transfusion: Yes service: No 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 Mild bilateral TMJ crepitus Resp Effort & Inspection: normal respiratory effort and able to speak in complete sentences Neuro General: patient oriented x3 Psych Mental Status: mental status grossly normal Speech and movement: Clear speech present Attitude: cooperative Assessment & Plan Assessment & Plan (1) Snoring: Code(s): R06.83 - Snoring Category: Medical (2) Excessive daytime sleepiness: Code(s): G47.19 - Other hypersomnia Category: Medical (3) Bruxism: Code(s): F45.8 - Other somatoform disorders Category: Medical Plan Pt is advised to undergo sleep study to assess for sleep apnea: HST. Upon review of sleep study results, will f/u with pt to discuss results and appropriate treatment options. Reviewed simple strategies to improve sleep quality by optimizing sleep hygiene such as wearing a sleep I mask at night, to minimize morning sunlight exposure as his bedroom does not have curtains.. Monitor mild symptoms of restlessness and feet when sitting. Monitor non migrainous morning headaches- may be related to bruxism and/or possible sleep apnea Case reviewed w/ Dr Karime Sampson. Coding Level of Care Code New Pt Level 4 (79339) Diagnoses Snoring R06.83 Excessive daytime sleepiness G47.19 Bruxism F45.8 [place] Sleepiness Scale Questions Sitting and reading: high chance of dozing Watching TV: moderate chance of dozing Sitting inactive in a theater, movie etc.: would never doze As a passenger in a car for an hour without break: would never doze Lying down in the afternoon when circumstances permit: high chance of dozing Sitting and talking to someone: would never doze Sitting quietly after lunch without alcohol: high chance of dozing In a car, while stopped for a few minutes in the traffic: would never doze ESS < 10: normal, ESS > 12: pathologic: 11
== END 2024-07-23 08:50 | disposition home or self-care (01) ==
PROVIDERS: PCP Family Medicine; Visit Provider Nurse Practitioner Family
DX: R06.83 Snoring (principal); G47.19 Other hypersomnia; F45.8 Other somatoform disorders
CPT/HCPCS: 99204

== ENCOUNTER → 2024-08-07 13:04 | Outpatient (AMB) | payer BC, SELFPAY ==
--- NOTE | 2024-08-07 13:02 | MHC.PC.OV ---
Intake Visit Reasons: f/u labs via telemedicine Intake Note: patient here for follow telehealth for lab review Solutions Development Analyst Required: No Allergies No Known Allergies Allergy (Verified 08/07/24 13:02) Medication List - Last Reconciled 08/07/24 by Jose David Campa MD rosuvastatin 5 mg PO DAILY 90 days Tobacco use date assessed: 08/07/24 Dental Screening Dental Screen Date: 08/07/24 Did you have a dental visit in the last 12 months?: Yes Did you have a dental problem in the last 6 months where you did not have access to dental care?: No Was dental information given to patient?: Patient has dentist HPI f/u labs via telemedicine HPI Details Telemedicine?appointment?to?follow-up?on?elevated?liver?enzymes Liver?enzymes?were?elevated?and?repeat?liver?enzymes?remained?so. 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 (central serous retinopathy) Surgical History History of hand surgery Family History Mother Skin cancer Liver failure Type 2 diabetes mellitus Father Colitis Acute Crohn's disease Social History Household Members: Family Both parents involved: No Caregiver staying overnight: No Housing: House Are you a primary daycare assistant to a significant other at home: No Do you presently have visiting nurse or other home services: No 75 years or older and lives alone: No Alcohol intake: never Patient Tobacco Use Status: Never used Tobacco e-Cigarette/Vaping Use: Never Used Agree to transfusion: Yes service: No 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 James, Emerson Cabral and colleagues, with an educational jossue from [employer]. Review of Systems Const Denies chills, Denies fatigue, Denies fever(s), Denies headache(s) and Denies weakness ENT Denies dizziness and Denies headache(s) Card Denies chest pain, Denies lightheadedness, Denies dyspnea and Denies other (Palpitations) Resp Denies cough, Denies dyspnea, Denies wheezing and Denies other ( shortness of breath) Musc Denies numbness and Denies tingling Neuro Denies dizziness, Denies headache(s), Denies numbness, Denies tingling, Denies paresthesias and Denies weakness Psych Denies anxiety and Denies depression Endo Denies fatigue Aller/Immun Denies wheezing Physical exam (Primary Care) Tobacco/Smoking Status: Tobacco use Status Tobacco use date assessed 08/07/24 08/07/24 13:04 Patient Tobacco Use Status Never used Tobacco 08/07/24 13:04 e-Cigarette/Vaping Use Never Used 08/07/24 13:04 Thrive Assessment: Date of Thrive Assessment Date Thrive assessed 05/15/24 08/07/24 13:04 Telehealth Telehealth Telehealth Platform: Telephone Location of provider rendering services: practice address Location of patient: address on file Patient Identification confirmed using: Name, : Yes Telehealth method: voice only Patient verbally consented to treatment: Yes Patient verbally consented to billing insurance company: Yes Patient informed of any privacy concerns related to visit: Yes Minutes spent on Phone/Video with Pt.: 7 Coding Level of Care Code Tele Est Pt Level 2 (49812) Diagnoses Elevated liver enzymes R74.8 Hyperlipidemia E78.5 Assessment & Plan Assessment & Plan (1) Elevated liver enzymes: Code(s): R74.8 - Abnormal levels of other serum enzymes Category: Medical Plan: Liver?enzymes?elevated?and?ultrasound?shows?hepatic?steatosis. No?masses.??Liver?stiffness?is?in?normal?range He?has?been?working?on?weight?loss?and?I?recommend?continue?this. Also?encouraged?good?hydration Will?recheck?liver?enzymes?with?next?blood?draw (2) Hyperlipidemia: Code(s): E78.5 - Hyperlipidemia, unspecified Category: Medical Plan: Lipids?are?fairly?well?controlled?on?rosuvastatin. Encouraged?weight?loss?and?a?diet?low?in?saturated?fats?and?cholesterol Orders: Orders Comprehensive [place]. Panel Fast Today R74.8 - Abnormal levels of other serum enzymes, Z00.00 - Encounter for general adult medical examination without abnormal findings Lipid Panel Today E78.5 - Hyperlipidemia, unspecified, Z00.00 - Encounter for general adult medical examination without abnormal findings
== END ==
LOC: HO.HMCFM 13:04
PROVIDERS: PCP Family Medicine; Visit Provider Family Medicine
DX: R74.8 Abnormal levels of other serum enzymes (principal); E78.5 Hyperlipidemia, unspecified

== ENCOUNTER → 2024-08-07 13:04 | Outpatient (BNVA) | payer BC, SELFPAY | PROVIDERS: PCP Family Medicine; Visit Provider Family Medicine ==

== ENCOUNTER 2024-09-10 11:22 | Outpatient (AMB) | payer BC, SELFPAY ==
[2024-09-10 11:24] VITALS: BP 120/70; PULSE 72; O2SAT 96; BMI 32.8
--- NOTE | 2024-09-10 11:24 | MHC.OFFVIS ---
Vital Signs 09/10/24 11:24 Height 5 ft 7 in Weight 209 lb 7.026 oz BMI 32.8 BP 120/70 Blood Pressure Location Rt brachial Position Sitting Pulse 72 Pulse Source Pulse Oximeter Pulse Oximetry (%) 96 Oxygen Delivery Method Room Air Intake Visit Reasons: [place] screening, R/S x2 Intake Note: NEW PATIENT for initial colo screening. Chief Complaint; C.O intermittent reflux w/o dysphagia. No hx of EGD or colo to this point. Pt is not treating reflux at this time. No additional concerns reported. 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 male hyperlipidemia is here today for pre colonoscopy screening.? Patient was sent to us by his PCP.? This is his first colonoscopy screening.? Patient denies any gastrointestinal symptoms in the past or at present.? Patient reports occasional acid reflux. Most often food related. Denies any personal or family history of gastrointestinal disease, colon polyps, or CRC.? Denies history of difficulty with sedation or anesthesia in the past.? Negative for history of sleep apnea. However patient reports snoring and is going for sleep study. ? Denies any history of cardiac, renal, pulmonary, or hepatic disease.?? No history of infectious? diseases like hepatitis A, B, C, HIV or tuberculosis.? 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) Surgical History Dental root implant present History of hand surgery Family History Mother Skin cancer Liver failure Type 2 diabetes mellitus Father Colitis Acute Crohn's disease Social History Household Members: Family Both parents involved: No Caregiver staying overnight: No Housing: House Are you a primary primary care provider to a significant other at home: No Do you presently have visiting nurse or other home services: No 75 years or older and lives alone: No Alcohol intake: never Patient Tobacco Use Status: Never used Tobacco e-Cigarette/Vaping Use: Never Used Agree to transfusion: Yes service: No 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 status: 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 Cognitive needs: No Hearing needs: No Vision needs: Yes (Patient wears contacts) Review of Systems Const Denies weight gain and Denies weight loss ENT Reports no additional complaints, Denies dysphagia and Denies odynophagia Card Reports no additional complaints Resp Reports no additional complaints GI Denies abdominal pain, Denies belching, Denies melena, Denies bloating, Denies change in bowel habits, Denies dysphagia, Denies excessive flatus, Denies dyspepsia, Reports heartburn (Occasional), Denies diarrhea, Denies loose stools, Denies nausea, Denies odynophagia and Denies vomiting Reports no additional complaints Musc Reports no additional complaints Neuro Reports no additional complaints Psych Reports no additional complaints Endo Reports no additional complaints Physical Exam Vital Signs: Last Vital Signs Pulse 72 09/10/24 11:24 BP 120/70 09/10/24 11:24 Pulse Ox 96 09/10/24 11:24 Oxygen Delivery Method Room Air 09/10/24 11:24 BMI result Body Mass Index 32.8 Const General: healthy appearing, no acute distress and well developed Nutritional Appearance: well nourished Orientation/consciousness: patient oriented x3 Resp Effort & Inspection: normal respiratory effort, able to speak in complete sentences, no tracheal deviation and symmetric chest movement Auscultation: clear to auscultation bilaterally Cardio Rate: regular rate GI Inspection: Yes normal to inspection and No distended Palpation (GI): Soft to palpation, not firm, nontender and No hepatosplenomegaly present Auscultation: normal bowel sounds General: Yes no CVA tenderness Back/Spine/Pelvis Back: no CVA tenderness Skin General skin exam: elasticity normal, turgor normal and dry skin Neuro General: patient oriented x3 Psych Appearance: grossly normal Mental Status: mental status grossly normal Assessment & Plan Assessment & Plan (1) GERD (gastroesophageal reflux disease): Code(s): K21.9 - Gastro-esophageal reflux disease without esophagitis Category: Medical Qualifiers: Esophagitis presence: esophagitis presence not specified Qualified Code(s): K21.9 - Gastro-esophageal reflux disease without esophagitis (2) Screening for colon cancer: Code(s): Z12.11 - Encounter for screening for malignant neoplasm of colon Category: Medical Plan Patient denies any cardiac or respiratory symptoms.? Patient reports occasional acid reflux related to the food that he eats. Patient is trying to avoid the culprit. Denies any issues with anesthesia in the past.? Denies any history of sleep apnea.? However patient admits to snoring and PCP order sleep study. No history infectious diseases in the past or present.? Not on any anticoagulation therapy.? No family or personal history of colon cancer or polyps.? Patient denies melena, hematochezia, unintentional weight loss or ribbon like stools.? Discussed at length the pre-procedure,? prep, diet & medications as well as what to expect prior, during and after the procedure.?? Stressed the importance of good bowel prep.? Recommended the use of Vaseline or Calmoseptine OTC & baby wipes with bowel movements to promote comfort.? ?Patient verbalizes understanding and agrees to plan of care.? She was given the opportunity to ask questions and all questions answered.? We will see her after the procedure.? Medications: New bisacodyl (Dulcolax (bisacodyl)) take 4 tabs at noon the day before your colonoscopy 20 mg (4 x 5 mg) PO ONCE 1 day 4 tabs 0RF Z12.11 - Encounter for screening for malignant neoplasm of colon polyethylene glycol 3350 (Miralax) As directed by gastroenterology department at [facility] 238 grams PO ONCE 238 grams 0RF Z12.11 - Encounter for screening for malignant neoplasm of colon Coding Level of Care Code New Pt Level 3 (44619) Diagnoses Gastroesophageal reflux disease, unspecified whether esophagitis present K21.9 Esophagitis presence: esophagitis presence not specified Screening for colon cancer Z12.11 Time Spent (min) 40 Comment 30 minutes spent with patient and additional 10 minutes spent reviewing his records
== END 2024-09-10 12:52 | disposition home or self-care (01) ==
LOC: HO.HGI 11:23
PROVIDERS: PCP Family Medicine; Visit Provider Nurse Practitioner Family
DX: Z01.818 Encounter for other preprocedural examination (principal); Z12.11 Encounter for screening for malignant neoplasm of colon; K21.9 Gastro-esophageal reflux disease without esophagitis
CPT/HCPCS: S0285

== ENCOUNTER → 2024-09-10 11:22 | Outpatient (BNVA) | payer BC, SELFPAY | PROVIDERS: PCP Family Medicine; Visit Provider Nurse Practitioner Family ==

== ENCOUNTER → 2025-04-07 14:52 | Outpatient (REF) | payer BC, SELFPAY | LOC: HO.SL 14:52 | PROVIDERS: PCP Family Medicine; Visit Provider Nurse Practitioner Family | DX: G47.19 Other hypersomnia (principal) | CPT/HCPCS: 95806 ==

== ENCOUNTER → 2025-04-07 15:03 | Outpatient (BNV) | payer BC, SELFPAY | PROVIDERS: PCP Family Medicine; Visit Provider Psychiatry & Neurology Neurology | DX: G47.33 Obstructive sleep apnea (adult) (pediatric) (principal) | CPT/HCPCS: 95806 ==

== ENCOUNTER 2025-04-23 09:22 | Day surgery (SDC) | payer BC, SELFPAY ==
--- NOTE | 2025-04-21 12:09 | HO.ANESPROP2 ---
Documented by User: Makenzie Whitlock NP 04/21/25 12:10 HPI - Anesthesia Eval Consult details Narrative: 49yo M for Colonoscopy PMFSH Active Problems Active Problems: All Active Problems Excessive daytime sleepiness (Acute) Snoring (Acute) Bruxism (Acute) Elevated liver enzymes (Acute) GERD (gastroesophageal reflux disease) (Acute) Elevated ALT measurement (Acute) Screening for prostate cancer (Acute) Screening for colon cancer (Acute) Adult general medical exam (Acute) Neoplasm of uncertain behavior of skin (Acute) Family history of diabetes mellitus (DM) (Acute) Hyperlipidemia (Acute) Laboratory exam ordered as part of routine general medical examination (Acute) Abscess of face (Acute) Past Medical History Medical History Sleep apnea Hyperlipidemia GERD (gastroesophageal reflux disease) 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 (central serous retinopathy) Family History Family History Mother Skin cancer Liver failure Type 2 diabetes mellitus Father Colitis Acute Crohn's disease Surgical History Surgical History Dental root implant present History of hand surgery Social History Social History Household Members: Family Housing: House Are you a primary menagerie caretaker to a significant other at home: No Do you presently have visiting nurse or other home services: No Alcohol intake: never Patient Tobacco Use Status: Never used Tobacco e-Cigarette/Vaping Use: Never Used Use of substances other than those prescribed or required for medical reasons: No Agree to transfusion: Yes Are you DNR?: No Advance Directives: No Advance Directives Information Provided: Yes service: No 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 status: 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 Cognitive needs: No Hearing needs: No Vision needs: Yes (Patient wears contacts) Meds Allergies Allergy/AdvReac Type Severity Reaction Status Date / Time No Known Allergies Allergy Verified 09/10/24 11:24 Assessment and Plan Assessment Anesthesia Assessment: Chart Reviewed Documented by User: Ana Sorensen MD 04/23/25 11:48 PMFSH Past Medical History Medical History Sleep apnea Hyperlipidemia GERD (gastroesophageal reflux disease) 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 (central serous retinopathy) Functional capacity: independent ambulation Family History Family History Mother Skin cancer Liver failure Type 2 diabetes mellitus Father Colitis Acute Crohn's disease Surgical History Surgical History Dental root implant present History of hand surgery History of Problems with Anesthesia: No Social History Social History Household Members: Family Housing: House Are you a primary menagerie caretaker to a significant other at home: No Do you presently have visiting nurse or other home services: No Alcohol intake: never Patient Tobacco Use Status: Never used Tobacco e-Cigarette/Vaping Use: Never Used Use of substances other than those prescribed or required for medical reasons: No Agree to transfusion: Yes Are you DNR?: No Advance Directives: No Advance Directives Information Provided: Yes service: No 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 status: 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 Cognitive needs: No Hearing needs: No Vision needs: Yes (Patient wears contacts) Meds Allergies Allergy/AdvReac Type Severity Reaction Status Date / Time No Known Allergies Allergy Verified 09/10/24 11:24 Exam Airway Mallampati Class: III TM Dist: >3cm Neck ROM: Full Loose/Missing/Broken Teeth: No Heart: RRR Lungs: CTA Assessment and Plan Assessment Anesthesia Assessment: Anesthesia Plan Discussed Final Anesthetic Review History of Problems with Anesthesia: No NPO: Yes ASA Class: II Final Preanesthetic Review: Meds/Allgs Chart Reviewed, Consent Obtained/Reviewed and Anes Risks/Benef Reviewed Patient Risk: Low Procedure Risk: Low Anesthetic Plan Anesthetic Plan: MAC: Disposition: Standard PACU
[2025-04-21 14:32] VITALS: BMI 72.2
[2025-04-22 12:46] VITALS: BMI 32.8
[2025-04-23 10:31] VITALS: BP 122/76; PULSE 62; RESP 12; TEMP 36.2; O2SAT 99; BMI 30.5
[2025-04-23] MEDS: Lactated Ringers 1,000 ML 100 ML IVCONT (10:43)
--- NOTE | 2025-04-23 11:29 | MHC.SHP ---
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)) History of Previous Operations: Relevant previous surgery/procedure and date(s) ( Dental root implant present History of hand surgery) Allergies: Allergies Allergy/AdvReac Type Severity Reaction Status Date / Time No Known Allergies Allergy Verified 09/10/24 11:24 Review of Systems Sugical H&P ROS: Negative: Constitution, Cardiovascular, Respiratory, Neurological, Psychiatric, Hem-Onc, Allergic/Immunologic, Gastrointestinal, Genitourinary, Musculoskeletal, Integumentary, Endocrine and Eyes/Ears/Nose/Throat Exam Surgical H&P Exam: Normal: HEENT, Normal: Heart, Normal: Lungs, Normal: Extremities, Normal: Abdomen, Normal: Skin and Normal: Neurological Plan Diagnosis/Plan: Unchanged I have reviewed the history and physical and performed a pertinent physical examination on my patient. No changes have occurred unless specified. Time Spent With Patient Time: Total time managing care of this patient today ____ minutes.
--- NOTE | 2025-04-23 12:00 | P.OPN-COLO_ITS ---
Colonoscopy Operative Note Operative Note Date of Service: 04/23/25 Narrative: Operative Information Procedure Description: Colonoscopy Indication: screening Anesthesia: MAC COLONOSCOPY Instrument: Olympus variable stiffness pediatric scope 190L Colonoscopy Monitoring: Vital signs and clinical assessment, continuous EKG monitoring, Pulse oximetry, Carbon Dioxide monitoring and blood pressure monitoring were done throughout the procedure. Colon withdrawal time was 10 minutes. Procedure: The patient was placed in the left lateral decubitis position and pre-procedure medications were administered. After a digital rectal examination of the ano-rectum, the video colonoscope was inserted into the rectum and advanced through the colon to the cecum/TI. The colonoscope was slowly withdrawn in a retrograde panoramic fashion and the colon mucosa was carefully examined including a retroflexed view of the rectum. Findings and interventions are described below. Procedure Difficulty: easy Findings: Terminal Ileum-normal Cecum:normal right sided retrofelxion- normal Ascending Colon: normal Transverse Colon -normal Descending Colon:normal Sigmoid Colon: 7-8 mm sessile polyp removed with cold snare and x 1 clip applied for hemostasis Rectum: Retroflexion with small internal hemorrhoids seen, grade I Anorectum - normal Intervention: cold snare Colon preparation: [place] Bowel Preparation Scale Right colon; 2 Transverse colon: 2 Left colon; 2 (0 = Unprepared colon segment with mucosa not seen due to solid stool that cannot be cleared. 1 = Portion of mucosa of the colon segment seen, but other areas of the colon segment not well seen due to staining, residual stool and/or opaque liquid. 2 = Minor amount of residual staining, small fragments of stool and/or opaque liquid, but mucosa of colon segment seen well. 3 = Entire mucosa of colon segment seen well with no residual staining, small fragments of stool or opaque liquid) Impression and Post Procedure Diagnosis: colon polyp x 1 internal hemorrhoids Plan: High fiber diet leaflet Avoid straining at stool, epsom salts and sitz bath, anusol supps or cream Repeat Colonoscopy in 5-7 years if adenomatous polyp, 10 yrs if hyperplastic or earlier if clinically indicated Above findings were reviewed with the patient and relevant handouts were provided if indicated.
[2025-04-23 12:05] VITALS: BP 95/54; PULSE 66; RESP 18; TEMP 36.6; O2SAT 99
[2025-04-23 12:20] VITALS: BP 123/74; PULSE 64; RESP 16; TEMP 36.4; O2SAT 99
== END 2025-04-23 12:49 | disposition home or self-care (01) ==
PROVIDERS: PCP Family Medicine; Visit Provider Internal Medicine Gastroenterology
PROC: 0DJD8ZZ Inspection of Lower Intestinal Tract, Via Natural or Artificial Opening Endoscopic (ICD-10-PCS; CPT 45378; principal; 2025-04-23 12:10)
DX: Z12.11 Encounter for screening for malignant neoplasm of colon (principal); K63.5 Polyp of colon; K64.0 First degree hemorrhoids; K21.9 Gastro-esophageal reflux disease without esophagitis; E78.5 Hyperlipidemia, unspecified; H35.719 Central serous chorioretinopathy, unspecified eye; R06.83 Snoring; Z79.899 Other long term (current) drug therapy; Z98.890 Other specified postprocedural states
CPT/HCPCS: 45385; 88305; J2003; J2704

== ENCOUNTER → 2025-04-23 09:22 | Outpatient (BNV) | payer BC, SELFPAY | PROVIDERS: PCP Family Medicine; Visit Provider Internal Medicine Gastroenterology | DX: Z12.11 Encounter for screening for malignant neoplasm of colon (principal); K63.5 Polyp of colon; K64.0 First degree hemorrhoids | CPT/HCPCS: 45385 ==

== ENCOUNTER 2025-06-16 13:21 | Outpatient (AMB) | payer BC, SELFPAY ==
[2025-06-16 13:28] VITALS: BP 110/78; PULSE 83; O2SAT 95; BMI 32.7
--- NOTE | 2025-06-16 13:28 | A.OFFVIS_ITS ---
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 Obstructive Sleep Apnea: - The patient underwent a home sleep study on April 07, 2025, which revealed an Apnea-Hypopnea Index (AHI) of 16.6, consistent with mild to moderate sleep apnea. - Study findings included an oxygen chicho of 88%, an average SpO2 of 92%, and 5 minutes of study time with SpO2 under 90%. - Snoring was documented for 1% of the study time. - He was advised to start CPAP therapy but has not used the machine, stating he is not interested in the treatment, though his would like him to use it. - The patient reported that he did not sleep well during the night of the sleep study, estimating he only got about three hours of sleep. Obesity: - The patient's height is 5'7 and he weighs a little over 200 pounds, corre sponding to a BMI of 32. - He carries some weight in his face and abdomen, which may exacerbate his sleep apnea symptoms Social History - The patient is and reports his would like him to use the CPAP machine. Results - Home sleep study (04/07/2025): Results showed an Apnea-Hypopnea Index (AHI) of 16.6 events/hour, an oxygen chicho of 88%, an average SpO2 of 92%, 5 minutes of time with SpO2 <90%, and snoring for 1% of the study time. 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 (central serous retinopathy) Surgical History Dental root implant present History of hand surgery Family History Mother Skin cancer Liver failure Type 2 diabetes mellitus Father Colitis Acute Crohn's disease Social History Household Members: Family Both parents involved: No Caregiver staying overnight: No Housing: House Are you a primary health care consultant to a significant other at home: No Do you presently have visiting nurse or other home services: No 75 years or older and lives alone: No Alcohol intake: never Patient Tobacco Use Status: Never used Tobacco e-Cigarette/Vaping Use: Never Used Agree to transfusion: Yes service: No 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 status: 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 Cognitive needs: No Hearing needs: No Vision needs: Yes (Patient wears contacts) Review of Systems Narrative Review of Systems As per HPI Physical Exam Exam Exam: Vital Signs: Last Vital Signs Pulse 83 06/16/25 13:28 BP 110/78 06/16/25 13:28 Pulse Ox 95 06/16/25 13:28 Oxygen Delivery Method Room Air 06/16/25 13:28 BMI result Body Mass Index 32.7 Const General: no acute distress Orientation/consciousness: patient oriented x3 Resp Effort & Inspection: normal respiratory effort and able to speak in complete sentences Neuro General: patient oriented x3 Psych Mental Status: mental status grossly normal Speech and movement: Clear speech present Attitude: cooperative Assessment & Plan Assessment & Plan (1) Moderate obstructive sleep apnea: Code(s): G47.33 - Obstructive sleep apnea (adult) (pediatric) Category: Medical (2) Obesity (BMI 30-39.9): Code(s): E66.9 - Obesity, unspecified Category: Medical Plan Discussion Notes I reviewed the results of his recent home sleep study, which confirmed a diagnosis of moderate obstructive sleep apnea. The patient stated he has not used the prescribed CPAP machine and was not initially interested in this line of therapy. We discussed several alternatives to CPAP. These include lifestyle modifications such as weight loss, as a 10% reduction in weight could potentially lower his sleep apnea severity from moderate to mild. Positional therapy, including elevating the head of the bed or using a wedge pillow, was also suggested. I offered a referral to an ENT specialist to assess for any anatomical obstructions that could be contributing to his apnea. We also briefly touched upon Inspire therapy as a more aggressive surgical option for which he may be a candidate. I explained that his AHI might be even higher in reality, as the home study cannot perfectly distinguish between sleep and wake times, and he reported poor sleep on the night of the test. I showed him his data, noting the obstructive events seem to originate from the throat rather than a central cause, given his minimal snoring and pattern of events. Thereafter, patient agreed to trial APAP therapy. Plan Patient was informed and verbally consented to the use of an ambient scribe for clinic note documentation during this visit. Obstructive sleep apnea in the setting of mild obesity: * The patient has [id number] obstructive sleep apnea, confirmed by a home sleep study a/w snoring * Start APAP 5-20 cmH2O, w/ EPR set to need, nightly > 4 hours, as pt continues to have good clinical effect from use. * Discuss the importance of PAP therapy maintenance including: * Clean CPAP machine and supplies routinely. * Change CPAP supplies routinely. * Use distilled water in CPAP water reservoir. * Pt to contact us or respiratory company with any questions or concerns. - The patient has a BMI of 32, which is a likely contributor to his sleep apnea. - Counseled the patient that a 10% weight loss could potentially downgrade his sleep apnea from moderate to mild severity. - Future considerations include Zepbound therapy Pt to follow-up in 6 months or sooner prn. Coding Level of Care Code Est Pt Level 3 (15110) Diagnoses Moderate obstructive sleep apnea G47.33 Obesity (BMI 30-39.9) E66.9
== END 2025-06-16 14:33 | disposition home or self-care (01) ==
LOC: HO.HSMS 13:22
PROVIDERS: PCP Family Medicine; Visit Provider Nurse Practitioner Family
DX: G47.33 Obstructive sleep apnea (adult) (pediatric) (principal); E66.9 Obesity, unspecified
CPT/HCPCS: 99213